=== PATIENT | male | born 1945 | race Caucasian/White ===

== ENCOUNTER 2024-01-06 22:40 | Emergency (ER) | payer MEDICARE ==
[~2024-01-06] VITALS: Ht 180.3 cm; Wt 64.9 kg
[2024-01-06 23:31] VITALS: BP 104/48; O2SAT 96
== END 2024-01-06 23:31 | disposition home or self-care (01) ==
LOC: ER 22:41
DX: U07.1 COVID-19 (principal); E78.00 Pure hypercholesterolemia, unspecified
CPT/HCPCS: 71045; A4606; A4663